=== PATIENT | female | born 1940 | race Caucasian/White ===

== ENCOUNTER → 2016-11-28 | Outpatient (CLI) | payer MEDICARE, BC ==
[~2016-11-28] MED LIST: ANTIVERT25 MG PO; BIOTIN1 MG PO; CARAFATE1 GM PO; DETROL LA4 MG PO; DIOVAN80 MG PO; EFFEXOR XR150 MG PO; FISH OIL 1,2001 EAC2 PO; FOLIC ACID1 MG PO; LIPITOR20 MG PO; METOPROLOL SUCC50 MG PO; MIRALAX17 GM PO; NEXIUM40 MG PO; OYSTER SHELL C500 MG PO; PLAVIX75 MG PO; PREDNISONE20 MG PO; PROTONIX40 MG PO; RANITIDINE HCL300 MG PO; SYNTHROID100 MCG PO; TAB A VITE1 EAC1 PO; ZANTAC300 MG PO
== END | disposition short-term general hospital (02) ==
LOC: CLCARD 08:26
DX: I25.10 Atherosclerotic heart disease of native coronary artery without angina pectoris (principal); I34.0 Nonrheumatic mitral (valve) insufficiency; E78.5 Hyperlipidemia, unspecified; I44.7 Left bundle-branch block, unspecified; R06.02 Shortness of breath; I10 Essential (primary) hypertension; Z98.890 Other specified postprocedural states